=== PATIENT | female | born 1960 | race Caucasian/White ===

== ENCOUNTER 2024-01-16 11:37 | Outpatient (AMB) | payer OTHER, SELFPAY ==
--- NOTE | 2024-01-16 11:27 | MHC.PC.OV ---
Vital Signs 01/16/24 11:52 Height 5 ft 2.4 in Weight 171 lb 6 oz BMI 30.9 BP 112/60 Blood Pressure Location Lt brachial Position Sitting Respiration 12 Pulse 80 Pulse Source Pulse Oximeter Temp 98.2 F Temp Source Oral Pulse Oximetry (%) 98 Oxygen Delivery Method Room Air Intake Visit Reasons: frnaky [facility] Intake Note: New patient visit Rubber Curer Required: No Allergies No Known Allergies Allergy (Verified 01/16/24 11:48) Medication List - Last Reconciled 01/16/24 by Jeri Law PA-C cyanocobalamin (vitamin B-12) 1,000 mcg PO DAILY diltiazem HCl ER (DILT-XR) 120 mg PO DAILY famotidine (Acid Security Police Officer (famotidine)) 20 mg PO DAILY furosemide 20 mg PO BID imatinib (Gleevec) 400 mg PO DAILY lisinopril 20 mg PO DAILY lorazepam 1 mg PO Q8H PRN 28 days Tobacco use date assessed: 01/16/24 Fall risk assessment: No Falls in past year Last assessed Fall Risk: 01/16/24 Dental Screening Dental Screen Date: 01/16/24 Did you have a dental visit in the last 12 months?: Yes Did you have a dental problem in the last 6 months where you did not have access to dental care?: No Was dental information given to patient?: Patient has dentist HPI [facility] HPI Details Patient is a 64-year-old female with a significant past medical history of obesity, anxiety, hypertension , prediabetes and hyperlipidemia and CML [facility] She is transferring from [facility] and was following with [facility]arc[facility]. CV: Blood pressure today in the office is 112/60. She is on lisinopril 20 mg, furosemide 20 mg b.i.d. and diltiazem 120 mg daily. Cholesterol was managed with atorvastatin 20 mg.. She did follow with cardiology and last year had a stress test which was normal, echo unchanged from previous. Following with Cardiology and has an appointment for a coronary artery CT at the end of the month. Musculoskeletal: Still does get some swelling/discomfort on the plantar aspect of her bilateral feet. Right worse than left. Improved with the diuretic. She has EMG is scheduled for next week, leg ultrasounds at the end of the month. Endo: Last A1c was 6.2. Psych: Takes Ativan as needed for anxiety symptoms. Was on a controlled substance contract at [facility]. Mammo: Up-to-date at [facility] states that it was done earlier this year in May Pap: As above Bone density: Reports being up-to-date. Colonoscopy: Overdue [facility] Medical History (Updated 01/16/24 @ 13:31 by Jeri Law PA-C) Prediabetes Obesity, Class I, BMI 30.0-34.9 (see actual BMI) Neuropathy of both feet Lower extremity edema Left-sided chest pain HTN (hypertension) Hyperlipidemia CML (chronic myelocytic leukemia) Anxiety Surgical History (Updated 01/16/24 @ 11:36 by Lisa Shepherd CMA) H/O lumpectomy Family History (Updated 01/16/24 @ 12:03 by Lisa Shepherd CMA) Mother HTN (hypertension) Hypercholesteremia Cardiovascular disease Father Hypercholesteremia HTN (hypertension) Cardiovascular disease Social History (Updated 01/16/24 @ 11:57 by Lisa Shepherd CMA) Housing: House Patient Tobacco Use Status: Former Tobacco user Years Smoked: Teenage years e-Cigarette/Vaping Use: Never Used Second Hand Smoke Exposure: No service: No Current occupational status: employed 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 1. Little interest or pleasure in doing things: not at all 2. Feeling down, depressed, or hopeless: not at all 3. Trouble falling or staying asleep, or sleeping too much: several days 4. Feeling tired or having little energy: several days 5. Poor appetite or overeating: not at all 6. Feeling bad about yourself - or that you are a failure or have let yourself or your family down: not at all 7. Trouble concentrating on things, such as reading the newspaper or watching television: not at all 8. Moving or speaking so slowly that other people could have noticed. Or the opposite - being so fidgety or restless that you have been moving around a lot more than usual: not at all 9. Thoughts that you would be better off or of hurting yourself in some way: not at all Total score: 2 Depression Screening Interpretation: Negative Depression Screening Done: Yes 66161 - PHQ-9 Billing: Yes Source: Developed by Drs. Jhon Lozano, Aracelis Fuentes, Cristobal Fofana and colleagues, with an educational arnaldo from [employer]. Thrive Questionnaire Date Thrive assessed: 01/16/24 I am a: Patient What is your living situation today?: I have a steady place to live Within the past 12 months, did the food you bought not last and you didn't have the money to get more?: Never true Within the past 12 months, did you worry whether your food would run out before you got money to buy more?: Never true Do you have trouble paying for medicines?: No Do you have trouble getting transportation to medical appointments?: No Do you have trouble paying your heating and electricity bill?: No Do you have trouble taking care of your child, family member or friend?: No Do you have trouble with day-to-day activities such as bathing, preparing meals, shopping, managing finances, etc.?: No Are you currently unemployed and looking for a job?: No Are you interested in more education?: No Please select the resources that you would like help with: None Currently or been in a relationship where the following occur: No concerns reported THRIVE Score: 0 AUDIT C Alcohol Use Questionnaire (AUDIT-C) 1. How often do you have a drink containing alcohol?: Monthly or less 2. How many drinks containing alcohol do you have on a typical day when you are drinking?: 1 or 2 3. How often do you have six or more drinks on one occasion?: Never Total Score: 1 HEATHER-7 AMB Questionnaire HEATHER-7 Date HEATHER - 7 assessed: 01/16/24 Feeling nervous, anxious, or on edge: 1 = Several days Not being able to stop or control worryin = Several days Worrying too much about different things: 1 = Several days Trouble relaxin = Not at all Being so restless that it is hard to sit still: 0 = Not at all Becoming easily annoyed or irritable: 0 = Not at all Feeling afraid as if something awful might happen: 0 = Not at all Total HEATHER-7 score (0-4 normal; 5-9 mild; 10-14 moderate; 15-21 severe): 3 Source: Developed by Drs. Jhon Lozano, Aracelis Fuentes, Cristobal Fofana and colleagues, with an educational arnaldo from [employer]. HEATHER-7 Assessment Billing HEATHER-7 Assessment Tool: HEATHER-7 Assessment 45453 Physical exam (Primary Care) Vital Signs: Last Vital Signs Temp 98.2 F 01/16/24 11:52 Pulse 80 01/16/24 11:52 Resp 12 01/16/24 11:52 BP 112/60 01/16/24 11:52 Pulse Ox 98 01/16/24 11:52 Oxygen Delivery Method Room Air 01/16/24 11:52 BMI result Body Mass Index 30.9 Tobacco/Smoking Status: Tobacco use Status Tobacco use date assessed 01/16/24 01/16/24 12:06 Patient Tobacco Use Status Former Tobacco user 01/16/24 12:06 e-Cigarette/Vaping Use Never Used 01/16/24 12:06 PHQ-9: PHQ-9 Score PHQ-9: Total score 2 01/16/24 12:10 Depression Screening Interpretation: Negative Thrive Assessment: Date of Thrive Assessment Date Thrive assessed 01/16/24 01/16/24 12:06 Currently or been in a relationship where the following occur: No concerns reported Const Orientation/consciousness: patient oriented x3 HENMT Ears: hearing grossly normal bilaterally Neck Thyroid: Thyroid normal Lymphatic: no lymphadenopathy noted Resp Auscultation: clear to auscultation bilaterally Cardio Rate: regular rate Rhythm: regular rhythm Heart sounds: S1 normal heart sound present and S2 normal heart sound present GI Inspection: Yes normal to inspection Palpation (GI): Soft to palpation and Other GI palpation findings present (nontender, no cva tenderness) Auscultation: normoactive bowel sounds Rectal Exam - Female: deferred Skin General skin exam: no rashes or lesions noted Neuro General: patient oriented x3, gait normal and no focal motor deficits Assessment and Plan Assessment & Plan (1) CML (chronic myelocytic leukemia): Code(s): C92.10 - Chronic myeloid leukemia, BCR/ABL-positive, not having achieved remission Plan: Managed by Dr. Ryan lagos (2) Hyperlipidemia: Code(s): E78.5 - Hyperlipidemia, unspecified Qualifiers: Hyperlipidemia type: mixed hyperlipidemia Qualified Code(s): E78.2 - Mixed hyperlipidemia Plan: refilled atorvastatin lipids and lfts ordered (3) HTN (hypertension): Code(s): I10 - Essential (primary) hypertension Qualifiers: Hypertension type: primary hypertension Qualified Code(s): I10 - Essential (primary) hypertension Plan: wnl continue current plan (4) Lower extremity edema: Code(s): R60.0 - Localized edema Plan: ? related to ccb reports normal xrays seeing vascular for u/s (5) Neuropathy of both feet: Code(s): G57.93 - Unspecified mononeuropathy of bilateral lower limbs Plan: emgs scheduled (6) Prediabetes: Code(s): R73.03 - Prediabetes Plan: a1c ordered Plan ref gastro for colonoscopy Orders: Orders Complete Blood Count Auto Diff Today C92.10 - Chronic myeloid leukemia, BCR/ABL-positive, not having achieved remission, E78.5 - Hyperlipidemia, unspecified, G57.93 - Unspecified mononeuropathy of bilateral lower limbs, I10 - Essential (primary) hypertension, R60.0 - Localized edema, R73.03 - Prediabetes Comprehensive [place]. Panel Fast Today C92.10 - Chronic myeloid leukemia, BCR/ABL-positive, not having achieved remission, E78.5 - Hyperlipidemia, unspecified, G57.93 - Unspecified mononeuropathy of bilateral lower limbs, I10 - Essential (primary) hypertension, R60.0 - Localized edema, R73.03 - Prediabetes Lipid Panel Today C92.10 - Chronic myeloid leukemia, BCR/ABL-positive, not having achieved remission, E78.5 - Hyperlipidemia, unspecified, G57.93 - Unspecified mononeuropathy of bilateral lower limbs, I10 - Essential (primary) hypertension, R60.0 - Localized edema, R73.03 - Prediabetes Lyme IgG/IgM w/reflex to WB Today C92.10 - Chronic myeloid leukemia, BCR/ABL-positive, not having achieved remission, E78.5 - Hyperlipidemia, unspecified, G57.93 - Unspecified mononeuropathy of bilateral lower limbs, I10 - Essential (primary) hypertension, R60.0 - Localized edema, R73.03 - Prediabetes TSH reflex Free T4 Today C92.10 - Chronic myeloid leukemia, BCR/ABL-positive, not having achieved remission, E78.5 - Hyperlipidemia, unspecified, G57.93 - Unspecified mononeuropathy of bilateral lower limbs, I10 - Essential (primary) hypertension, R60.0 - Localized edema, R73.03 - Prediabetes UA CC w/rflx Micro + Cult Today C92.10 - Chronic myeloid leukemia, BCR/ABL-positive, not having achieved remission, E78.5 - Hyperlipidemia, unspecified, G57.93 - Unspecified mononeuropathy of bilateral lower limbs, I10 - Essential (primary) hypertension, R60.0 - Localized edema, R73.03 - Prediabetes Microalbumin, Random (w Creat) Today R73.03 - Prediabetes Hemoglobin A1c Today R73.03 - Prediabetes Referrals Gastroenterology Referral Z12.11 - Encounter for screening for malignant neoplasm of colon Medications: New atorvastatin 20 mg PO BEDTIME 90 tabs 1RF Coding Level of Care Code Est Pt Level 4 (64706) Complex EM visit Add On G2211 Diagnoses CML (chronic myelocytic leukemia) C92.10 Mixed hyperlipidemia E78.2 Hyperlipidemia type: mixed hyperlipidemia Primary hypertension I10 Hypertension type: primary hypertension Lower extremity edema R60.0 Neuropathy of both feet G57.93 Prediabetes R73.03 Additional Codes HEATHER-7 Assessment Billing - HEATHER-7 Assessment Tool: HEATHER-7 Assessment 34310 ([id number])
[2024-01-16 11:52] VITALS: BP 112/60; PULSE 80; RESP 12; TEMP 36.8; O2SAT 98; BMI 30.9
== END 2024-01-16 12:57 | disposition home or self-care (01) ==
PROVIDERS: PCP Physician Assistant; Visit Provider Physician Assistant
DX: I10 Essential (primary) hypertension (principal); C92.10 Chronic myeloid leukemia, BCR/ABL-positive, not having achieved remission; E78.2 Mixed hyperlipidemia; R60.0 Localized edema; G57.93 Unspecified mononeuropathy of bilateral lower limbs; R73.03 Prediabetes
CPT/HCPCS: 99214

== ENCOUNTER 2024-01-24 08:30 | Outpatient (REF) | payer OTHER, SELFPAY ==
[2024-01-24 10:05] LABS: MANUAL DIFF FLAG NO
[2024-01-24 10:09] LABS: Appearance Urine Clear; Color Urine Yellow; Glucose Urine UA Negative (Negative); Leukocyte Esterase Urine Negative (Negative); Nitrite Urine Negative (Negative); Urine Blood Negative (Negative); Urine Ketones Negative (Negative); Urine Protein Negative (Neg-Trace)
[2024-01-24 10:39] LABS: Creatinine Urine 63.08 mg/dL; Microalbumin Urine < 5.0 mg/L
[2024-01-24 10:39] LABS: Estimated Average Glucose 123 mg/dL; Hemoglobin A1c % 5.9 % (<6.0)
[2024-01-24 10:40] LABS: Alanine Aminotransferase 22 U/L (0-31); Alkaline Phosphatase 114 U/L (39-117); Anion Gap 13 (12-20); Aspartate Amino Transferase 21 U/L (5-31); Bilirubin Total 0.5 mg/dL (0.0-1.0); Blood Urea Nitrogen 12 mg/dL (9-16); Calcium 9.3 mg/dL (8.4-10.2); Carbon Dioxide 26 mmol/L (22-29); Chloride 106 mmol/L (96-108); Cholesterol 166 mg/dL (<200); Estimated Glomerular Filt Rate > 60; Glucose Fasting 126 mg/dL (60-99); HDL Cholesterol 48 mg/dL (>40); LDL Cholesterol Calculated 95 mg/dL (<100); Sodium 141 mmol/L (135-145); Total Protein 6.8 g/dL (6.5-8.0); Triglycerides 119 mg/dL (<150)
[2024-01-24 10:44] LABS: Basophils Absolute Auto 0.1 X10*3/uL (0.0-0.2); Basophils Percent Auto 0.7 % (0-2); Eosinophils Absolute Auto 0.1 X10*3/uL (0.0-0.4); Hematocrit 36.1 % (37.0-47.0); Hemoglobin 12.6 g/dl (12.0-16.0); Imm Gran Abs Auto 0.01 X10*3/uL (0.00-0.03); Imm Gran Pct Auto 0.1 % (0.0-0.4); Lymphocytes Percent Auto 28.3 % (20-40); Mean Corpuscular HGB Conc 34.9 g/dl (31.0-35.0); Mean Corpuscular Hemoglobin 31.5 pg (27.0-33.0); Mean Corpuscular Volume 90.3 fL (80.0-98.0); Mean Platelet Volume 9.3 fL (9.4-12.3); Monocytes Absolute Auto 0.5 X10*3/uL (0.1-1.2); Monocytes Percent Auto 6.7 % (2-11); Neutrophils Absolute Auto 4.4 x10*3/uL (2.0-8.3); Neutrophils Percent Auto 62.2 % (45-73); Platelet Count 332 X10*3/uL (160-400); Red Cell Distribution Width 13.2 % (11.0-16.0); White Blood Count 7.1 X10*3/uL (4.8-10.8)
[2024-01-24 10:58] LABS: TSH reflex Free T4 0.81 uIU/mL (0.32-4.0)
[2024-01-25 21:14] LABS: Lyme Abs Screen <0.90 index
== END 2024-01-24 08:31 | disposition home or self-care (01) ==
LOC: HO.HMGCLDS 08:30
PROVIDERS: PCP Physician Assistant; Visit Provider Physician Assistant
DX: R73.03 Prediabetes (principal); G57.93 Unspecified mononeuropathy of bilateral lower limbs; I10 Essential (primary) hypertension; E78.5 Hyperlipidemia, unspecified; R60.0 Localized edema; C92.10 Chronic myeloid leukemia, BCR/ABL-positive, not having achieved remission
CPT/HCPCS: 36415; 80053; 80061; 81003; 82043; 82570; 83036; 84443; 85025; 86617; 86618

== ENCOUNTER 2024-03-06 15:13 | Outpatient (AMB) | payer OTHER, SELFPAY ==
--- NOTE | 2024-03-06 15:33 | MHC.PC.OV ---
Vital Signs 03/06/24 15:34 Height 5 ft 2.4 in Weight 176 lb BMI 31.8 BP 124/78 Blood Pressure Location Rt brachial Position Sitting Pulse 73 Pulse Source Pulse Oximeter Pulse Oximetry (%) 99 Oxygen Delivery Method Room Air Intake Visit Reasons: f/u csc and imaging with [facility] Intake Note: Follow up Transportation Security Screener Required: No Allergies No Known Allergies Allergy (Verified 03/06/24 15:33) Tobacco use date assessed: 01/16/24 Dental Screening Dental Screen Date: 01/16/24 HPI HPI Comments History of Present Illness Details Patient is a 64-year-old female with a past medical history of obesity, anxiety, hypertension, prediabetes and hyperlipidemia and CML presenting today for followup. CV: Blood pressure today in the office is 124/78. She is on lisinopril 20 mg, furosemide 20 mg b.i.d. and diltiazem 120 mg daily. Cholesterol was managed with atorvastatin 20 mg. She did follow with cardiology and last year had a stress test which was normal, echo unchanged from previous. Following with Cardiology. Dr. Rahman, and had a coronary artery calcium score on 02/07/24 which showed minimal stenosis in the left distal left main, mid LAD and distal RCA and mild diffuse mixed atherosclerotic plaque in the descending thoracic aorta. She had a lower extremity EMG in January at [facility], but the result is not on her portal. She was told it was normal. Her legs feel heavy frequently. Taking the diuretic helps. She mentions today that she thinks this may have started after she began taking diltiazem for her blood pressure. Still does get some swelling/discomfort on the plantar aspect of her bilateral feet. Right worse than left. Improved with the diuretic. She saw vascular surgery, and evaluation demonstrated no significant reflux. Endo: Last A1c was 5.9% 02/01/2024. Psych: Takes Ativan as needed for anxiety symptoms. ROS: Constitutional: No unexplained weight loss, fever, chills Respiratory: No shortness of breath Cardiovascular: No chest pain Neurologic: No headache, dizziness, syncope Skin: No rash Physical exam: Constitutional: Alert, in no distress. Head: Normocephalic. Respiratory: Clear to auscultation. Cardiovascular: S1 S2 regular. No murmurs Neurologic: No focal neurological deficits. . Extremities: Warm and well perfused. No clubbing, cyanosis. There is trace bilateral lower extremity edema Psychiatric: Normal mood and affect [facility] Medical History (Updated 01/16/24 @ 13:31 by Jeri Law PA-C) Prediabetes Obesity, Class I, BMI 30.0-34.9 (see actual BMI) Neuropathy of both feet Lower extremity edema Left-sided chest pain HTN (hypertension) Hyperlipidemia CML (chronic myelocytic leukemia) Anxiety Surgical History (Updated 01/16/24 @ 11:36 by Lisa Shepherd CMA) H/O lumpectomy Family History (Updated 01/16/24 @ 12:03 by Lisa Shepherd CMA) Mother HTN (hypertension) Hypercholesteremia Cardiovascular disease Father Hypercholesteremia HTN (hypertension) Cardiovascular disease Social History (Updated 01/16/24 @ 11:57 by Lisa Shepherd CMA) Housing: House Patient Tobacco Use Status: Former Tobacco user Years Smoked: Teenage years e-Cigarette/Vaping Use: Never Used Second Hand Smoke Exposure: No service: No Current occupational status: employed 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 1. Little interest or pleasure in doing things: not at all 2. Feeling down, depressed, or hopeless: not at all 3. Trouble falling or staying asleep, or sleeping too much: not at all 4. Feeling tired or having little energy: not at all 5. Poor appetite or overeating: not at all 6. Feeling bad about yourself - or that you are a failure or have let yourself or your family down: not at all 7. Trouble concentrating on things, such as reading the newspaper or watching television: not at all 8. Moving or speaking so slowly that other people could have noticed. Or the opposite - being so fidgety or restless that you have been moving around a lot more than usual: not at all Source: Developed by Drs. Jhon Lozano, Aracelis Fuentes, Cristobal Fofana and colleagues, with an educational arnaldo from [employer]. Thrive Questionnaire Date Thrive assessed: 02/28/24 I am a: Patient What is your living situation today?: I have a steady place to live Within the past 12 months, did the food you bought not last and you didn't have the money to get more?: Never true THRIVE Score: 0 HEATHER-7 AMB Questionnaire HEATHER-7 Date HEATHER - 7 assessed: 01/16/24 Source: Developed by Drs. Jhon Lozano, Aracelis Fuentes, Cristobal Fofana and colleagues, with an educational arnaldo from [employer]. Physical exam (Primary Care) Vital Signs: Last Vital Signs Pulse 73 03/06/24 15:34 BP 124/78 03/06/24 15:34 Pulse Ox 99 03/06/24 15:34 Oxygen Delivery Method Room Air 03/06/24 15:34 BMI result Body Mass Index 31.8 Tobacco/Smoking Status: Tobacco use Status Tobacco use date assessed 01/16/24 03/06/24 15:38 Patient Tobacco Use Status Former Tobacco user 03/06/24 15:38 e-Cigarette/Vaping Use Never Used 03/06/24 15:38 Thrive Assessment: Date of Thrive Assessment Date Thrive assessed 02/28/24 03/06/24 15:38 Coding Level of Care Code Est Pt Level 4 (98639) Complex EM visit Add On G2211 Diagnoses CML (chronic myelocytic leukemia) C92.10 Lower extremity edema R60.0 Prediabetes R73.03 Primary hypertension I10 Hypertension type: primary hypertension Mixed hyperlipidemia E78.2 Hyperlipidemia type: mixed hyperlipidemia Neuropathy of both feet G57.93 Assessment & Plan Assessment & Plan (1) CML (chronic myelocytic leukemia): Code(s): C92.10 - Chronic myeloid leukemia, BCR/ABL-positive, not having achieved remission Category: Medical (2) Lower extremity edema: Code(s): R60.0 - Localized edema Category: Medical (3) Prediabetes: Code(s): R73.03 - Prediabetes Category: Medical (4) HTN (hypertension): Code(s): I10 - Essential (primary) hypertension Category: Medical Qualifiers: Hypertension type: primary hypertension Qualified Code(s): I10 - Essential (primary) hypertension (5) Hyperlipidemia: Code(s): E78.5 - Hyperlipidemia, unspecified Category: Medical Qualifiers: Hyperlipidemia type: mixed hyperlipidemia Qualified Code(s): E78.2 - Mixed hyperlipidemia (6) Neuropathy of both feet: Code(s): G57.93 - Unspecified mononeuropathy of bilateral lower limbs Category: Medical Plan The patient will try discontinuing diltiazem while increasing lisinopril to 30 mg daily. Given written instructions that if blood pressure is greater than 140/90 she should increase to 40 mg of lisinopril by taking 2 of her 20 mg tablets. When she returns in 2 weeks for follow up we will check renal function and electrolytes. Side effects of the medication reviewed. If her lower extremity symptoms do not resolve or significantly improve after making this change we discussed ordering imaging of her lower back to see if this is possibly related to nerve compression. She agrees. We discussed increasing her dose of atorvastatin to target LDL less than 70 given minimal/mild atherosclerosis on her coronary artery CT scan, but we will defer this change until her next appointment given the changes we are making to her blood pressure regimen today. She will continue her other medications including her diuretic. EMG result requested from [facility]. Follow up in 2 weeks for re-evaluation. Medications: New lisinopril 30 mg PO DAILY 14 days 14 tabs 0RF Discontinued lisinopril Discontinued Reason: Doctor's Order 20 mg PO DAILY 90 tabs 3RF diltiazem HCl ER (DILT-XR) Discontinued Reason: Doctor's Order 120 mg PO DAILY 90 caps 3RF Patient Instructions: Stop diltiazem and increase lisinopril to 30 mg once daily. If your blood pressure is >140/90 then stop the 30 mg tab and take 2 of the 20 mg Lisinopril tablets daily. Follow up in 2 weeks for blood pressure and blood test that day to check your kidney function and potassium on the new dose of Lisinopril.
[2024-03-06 15:34] VITALS: BP 124/78; PULSE 73; O2SAT 99; BMI 31.8
== END 2024-03-06 16:04 | disposition home or self-care (01) ==
PROVIDERS: PCP Physician Assistant; Visit Provider Physician Assistant Medical
DX: C92.10 Chronic myeloid leukemia, BCR/ABL-positive, not having achieved remission (principal); R60.0 Localized edema; R73.03 Prediabetes; I10 Essential (primary) hypertension; E78.2 Mixed hyperlipidemia; G57.93 Unspecified mononeuropathy of bilateral lower limbs

== ENCOUNTER → 2024-03-06 15:13 | Outpatient (BNVA) | payer OTHER, SELFPAY | PROVIDERS: PCP Physician Assistant; Visit Provider Physician Assistant Medical ==

== ENCOUNTER 2024-03-20 11:36 | Outpatient (AMB) | payer OTHER, SELFPAY ==
--- NOTE | 2024-03-20 11:38 | MHC.PC.OV ---
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 CV: We stopped diltiazem and increase lisinopril from 20-30 mg at her last visit. She also takes furosemide 20 mg b.i.d. Cholesterol is managed with atorvastatin 20 mg. She did follow with cardiology and last year had a stress test which was normal, echo unchanged from previous. Following with Cardiology. Dr. Rahman, and had a coronary artery calcium score on 02/07/24 which showed minimal stenosis in the left distal left main, mid LAD and distal RCA and mild diffuse mixed atherosclerotic plaque in the descending thoracic aorta. Home blood pressure readings: 03/07 135/68 125/69 03/12 131/69 03/14 136/62 03/16 133/65 131/77 03/19/24 126/65 an 118/62 She had a lower extremity EMG in January at [facility] which was normal. Her legs feel heavy frequently. Taking the diuretic helps. We discontinued diltiazem because she thought it started or worsened after she began this medication. Still does get some swelling/discomfort on the plantar aspect of her bilateral feet. Right worse than left. Improved with the diuretic. Lower extremity edema is also a potential side effect of Gleevec. She saw vascular surgery, and evaluation demonstrated no significant reflux. Endo: Last A1c was 5.9% 02/01/2024. Psych: Takes Ativan as needed for anxiety symptoms. ROS: Constitutional: No unexplained weight loss, fever, chills Respiratory: No shortness of breath Cardiovascular: No chest pain Neurologic: No headache, dizziness, syncope Skin: No rash Physical exam: Constitutional: Alert, in no distress. Head: Normocephalic. Respiratory: Clear to auscultation. Cardiovascular: S1 S2 regular. No murmurs Neurologic: No focal neurological deficits. . Extremities: Warm and well perfused. No clubbing, cyanosis. There is trace bilateral lower extremity edema Psychiatric: Normal mood and affect [facility] Medical History Prediabetes Obesity, Class I, BMI 30.0-34.9 (see actual BMI) Neuropathy of both feet Lower extremity edema Left-sided chest pain HTN (hypertension) Hyperlipidemia CML (chronic myelocytic leukemia) Anxiety Surgical History H/O lumpectomy Family History Mother HTN (hypertension) Hypercholesteremia Cardiovascular disease Father Hypercholesteremia HTN (hypertension) Cardiovascular disease Social History Housing: House Patient Tobacco Use Status: Former Tobacco user Years Smoked: Teenage years e-Cigarette/Vaping Use: Never Used Second Hand Smoke Exposure: No service: No Current occupational status: employed 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 95982 - PHQ-9 Billing: Patient declined-do not bill Source: Developed by Drs. Jhon Lozano, Aracelis Fuentes, Cristobal Fofana and colleagues, with an educational arnaldo from [employer]. Thrive Questionnaire Date Thrive assessed: 03/20/24 I am a: Patient What is your living situation today?: I have a steady place to live Within the past 12 months, did the food you bought not last and you didn't have the money to get more?: Never true Within the past 12 months, did you worry whether your food would run out before you got money to buy more?: Never true Do you have trouble paying for medicines?: No Do you have trouble getting transportation to medical appointments?: No Do you have trouble paying your heating and electricity bill?: No Do you have trouble taking care of your child, family member or friend?: No Do you have trouble with day-to-day activities such as bathing, preparing meals, shopping, managing finances, etc.?: No Are you currently unemployed and looking for a job?: No Are you interested in more education?: No THRIVE Score: 0 HEATHER-7 AMB Questionnaire HEATHER-7 Date HEATHER - 7 assessed: 01/16/24 Source: Developed by Drs. Jhon Lozano, Aracelis Fuentes, Cristobal Fofana and colleagues, with an educational arnaldo from [employer]. Physical exam (Primary Care) Vital Signs: Last Vital Signs Pulse 65 03/20/24 11:42 Resp 13 03/20/24 11:42 BP 140/65 H 03/20/24 11:42 Pulse Ox 100 03/20/24 11:42 Oxygen Delivery Method Room Air 03/20/24 11:42 BMI result Body Mass Index 31.4 Tobacco/Smoking Status: Tobacco use Status Tobacco use date assessed 01/16/24 03/20/24 11:41 Patient Tobacco Use Status Former Tobacco user 03/20/24 11:41 e-Cigarette/Vaping Use Never Used 03/20/24 11:41 Thrive Assessment: Date of Thrive Assessment Date Thrive assessed 03/20/24 03/20/24 11:41 Coding Level of Care Code Est Pt Level 4 (70122) Complex EM visit Add On G2211 Diagnoses CML (chronic myelocytic leukemia) C92.10 Lower extremity edema R60.0 Prediabetes R73.03 Primary hypertension I10 Hypertension type: primary hypertension Mixed hyperlipidemia E78.2 Hyperlipidemia type: mixed hyperlipidemia Neuropathy of both feet G57.93 Assessment & Plan Assessment & Plan (1) CML (chronic myelocytic leukemia): Code(s): C92.10 - Chronic myeloid leukemia, BCR/ABL-positive, not having achieved remission Category: Medical (2) Lower extremity edema: Code(s): R60.0 - Localized edema Category: Medical (3) Prediabetes: Code(s): R73.03 - Prediabetes Category: Medical (4) HTN (hypertension): Code(s): I10 - Essential (primary) hypertension Category: Medical Qualifiers: Hypertension type: primary hypertension Qualified Code(s): I10 - Essential (primary) hypertension (5) Hyperlipidemia: Code(s): E78.5 - Hyperlipidemia, unspecified Category: Medical Qualifiers: Hyperlipidemia type: mixed hyperlipidemia Qualified Code(s): E78.2 - Mixed hyperlipidemia (6) Neuropathy of both feet: Code(s): G57.93 - Unspecified mononeuropathy of bilateral lower limbs Category: Medical Plan She will remain off diltiazem. She will send me blood pressure readings over the patient portal after another 2 weeks. I will increase her dose of lisinopril to 40 mg if her blood pressure readings are not at goal. Check BMP today. We discussed increasing her dose of atorvastatin to target LDL less than 70 given minimal/mild atherosclerosis on her coronary artery CT scan. She is agreeable to this. Side effects reviewed with the patient. She will contact the office if she has any difficulty with this. She will continue her other medications including her diuretic. Continue Ativan 1 mg every 8 hours as needed for anxiety. Reviewed it is a controlled substance that is addictive. She is not to stop it abruptly. Do not drink alcohol with this medication. Do not drive or operate heavy machinery. Follow up in 6 months for medication review. Orders: Orders Basic Metabolic Panel Today I10 - Essential (primary) hypertension Medications: New atorvastatin 40 mg PO BEDTIME 90 tabs 0RF Changed From lisinopril 30 mg PO DAILY 14 days 14 tabs 0RF To lisinopril 30 mg PO DAILY 30 tabs 0RF 30 days Discontinued atorvastatin Discontinued Reason: Doctor's Order 20 mg PO BEDTIME 90 tabs 1RF
[2024-03-20 11:42] VITALS: BP 140/65; PULSE 65; RESP 13; O2SAT 100; BMI 31.4
== END 2024-03-20 12:03 | disposition home or self-care (01) ==
LOC: HO.HMCFM 11:36
PROVIDERS: PCP Physician Assistant Medical; Visit Provider Physician Assistant Medical
DX: C92.10 Chronic myeloid leukemia, BCR/ABL-positive, not having achieved remission (principal); R60.0 Localized edema; R73.03 Prediabetes; I10 Essential (primary) hypertension; E78.2 Mixed hyperlipidemia; G57.93 Unspecified mononeuropathy of bilateral lower limbs

== ENCOUNTER → 2024-03-20 11:36 | Outpatient (BNVA) | payer OTHER, SELFPAY | PROVIDERS: PCP Physician Assistant; Visit Provider Physician Assistant Medical ==

== ENCOUNTER 2024-03-27 15:21 | Outpatient (REF) | payer OTHER, SELFPAY ==
[2024-03-27 18:19] LABS: Anion Gap 13 (12-20); Blood Urea Nitrogen 14 mg/dL (9-16); Calcium 9.1 mg/dL (8.4-10.2); Carbon Dioxide 29 mmol/L (22-29); Chloride 103 mmol/L (96-108); Estimated Glomerular Filt Rate 54; Glucose Random 117 mg/dL (60-115); Potassium 3.5 mmol/L (3.3-5.1); Sodium 141 mmol/L (135-145)
== END 2024-03-27 15:22 | disposition home or self-care (01) ==
LOC: HO.HMGCLDS 15:21
PROVIDERS: PCP Physician Assistant Medical; Visit Provider Physician Assistant Medical
DX: I10 Essential (primary) hypertension (principal)
CPT/HCPCS: 36415; 80048

== ENCOUNTER 2024-05-30 08:09 | Outpatient (AMB) | payer OTHER, SELFPAY ==
[2024-05-30 08:12] VITALS: BP 130/66; PULSE 78; O2SAT 98; BMI 32.1
--- NOTE | 2024-05-30 08:12 | MHC.OFFVIS ---
Vital Signs 05/30/24 08:12 Height 5 ft 2 in Weight 175 lb 7.807 oz BMI 32.1 BP 130/66 Blood Pressure Location Rt brachial Position Sitting Pulse 78 Pulse Source Pulse Oximeter Pulse Oximetry (%) 98 Oxygen Delivery Method Room Air Intake Visit Reasons: Colonoscopy Screening Intake Note: NEW PATIENT Reason; Screening Prior hx of colo/egd? [place]o ' via [facility]? Most recent on file was w/ Dr. Cedillo Concerns/Questions? Worsening GERD sx. Pt still taking famotidine but feels it is not as well controlled. Allergies No Known Allergies Allergy (Verified 05/30/24 08:13) HPI HPI Colonoscopy Screening: Details: 64 year old? female with past medical history of hypertension, hyperlipidemia, CML is here today for pre colonoscopy screening.? Patient was sent to us by her PCP.? Last colonoscopy in 2004.? Patient reports acid reflux. Taking Pepcid, however states that it is not helping. Reports worsening symptoms at night time. ? Denies any personal or family history of gastrointestinal disease, colon polyps, or CRC.? Denies history of difficulty with sedation or anesthesia in the past.? Negative for history of sleep apnea.? Denies any history of cardiac, renal, pulmonary, or hepatic disease.?? No history of infectious? diseases like hepatitis A, B, C, HIV or tuberculosis.? Patient is not on any anticoagulation [facility] Medical History (Updated 05/30/24 @ 10:47 by Daphne Brandon, [facility]) GERD (gastroesophageal reflux disease) Prediabetes Obesity, Class I, BMI 30.0-34.9 (see actual BMI) Neuropathy of both feet Lower extremity edema Left-sided chest pain HTN (hypertension) Hyperlipidemia CML (chronic myelocytic leukemia) Anxiety Surgical History H/O lumpectomy Family History Mother HTN (hypertension) Hypercholesteremia Cardiovascular disease Father Hypercholesteremia HTN (hypertension) Cardiovascular disease Social History Housing: House Patient Tobacco Use Status: Former Tobacco user Years Smoked: Teenage years e-Cigarette/Vaping Use: Never Used Second Hand Smoke Exposure: No service: No Current occupational status: employed 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 Current occupational exposures/hazards: No Cognitive needs: No Hearing needs: No Vision needs: Yes (reading glasses) Review of Systems Const Denies weight gain and Denies weight loss ENT Reports no additional complaints, Denies dysphagia and Denies odynophagia Card Reports no additional complaints Resp Reports no additional complaints GI Denies abdominal pain, Denies belching, Denies melena, Denies bloating, Denies change in bowel habits, Denies dysphagia, Denies excessive flatus, Denies dyspepsia, Denies heartburn, Denies diarrhea, Denies loose stools, Denies nausea, Denies odynophagia and Denies vomiting Musc Reports no additional complaints Neuro Reports no additional complaints Psych Reports no additional complaints Endo Reports no additional complaints Physical Exam Vital Signs: Last Vital Signs Pulse 78 05/30/24 08:12 BP 130/66 05/30/24 08:12 Pulse Ox 98 05/30/24 08:12 Oxygen Delivery Method Room Air 05/30/24 08:12 BMI result Body Mass Index 32.1 Const General: healthy appearing, no acute distress and well developed Nutritional Appearance: well nourished Orientation/consciousness: patient oriented x3 Resp Effort & Inspection: normal respiratory effort, able to speak in complete sentences, no tracheal deviation and symmetric chest movement Auscultation: clear to auscultation bilaterally Cardio Rate: regular rate GI Inspection: Yes normal to inspection and No distended Palpation (GI): Soft to palpation, not firm, nontender and No hepatosplenomegaly present Auscultation: normal bowel sounds General: Yes no CVA tenderness Back/Spine/Pelvis Back: no CVA tenderness Skin General skin exam: elasticity normal, turgor normal and dry skin Neuro General: patient oriented x3 Psych Appearance: grossly normal Mental Status: mental status grossly normal Assessment & Plan Assessment & Plan (1) Screen for colon cancer: Code(s): Z12.11 - Encounter for screening for malignant neoplasm of colon (2) GERD (gastroesophageal reflux disease): Code(s): K21.9 - Gastro-esophageal reflux disease without esophagitis Category: Medical Qualifiers: Esophagitis presence: esophagitis presence not specified Qualified Code(s): K21.9 - Gastro-esophageal reflux disease without esophagitis Plan Patient denies any cardiac or respiratory symptoms.? Patient reports acid reflux. Worse at night time. Patient is taking famotidine, however reports that it is not helping as much. Patient denies dyspepsia, dysphagia or odynophagia. Will send patient for upper endoscopy to rule out gastritis, esophagitis, gastric or peptic ulcer, H pylori. Denies any issues with anesthesia in the past.? Denies any history of sleep apnea.? No history infectious diseases in the past or present.? Not on any anticoagulation therapy.? No family or personal history of colon cancer.? Patient denies melena, hematochezia, unintentional weight loss or ribbon like stools.? Discussed at length the pre-procedure,? prep, diet & medications as well as what to expect prior, during and after the procedure.?? Stressed the importance of good bowel prep.? Recommended the use of Vaseline or Calmoseptine OTC & baby wipes with bowel movements to promote comfort.? ?Patient verbalizes understanding and agrees to plan of care.? She was given the opportunity to ask questions and all questions answered.? We will see her after the procedure.? Medications: New pantoprazole 20 mg PO DAILY 30 tabs 3RF bisacodyl (Dulcolax (bisacodyl)) take 4 tabs at noon the day before your colonoscopy 20 mg (4 x 5 mg) PO ONCE 1 day 4 tabs 0RF Z12.11 - Encounter for screening for malignant neoplasm of colon polyethylene glycol 3350 (Miralax) As directed by gastroenterology department at [facility] 238 grams PO ONCE 238 grams 0RF Z12.11 - Encounter for screening for malignant neoplasm of colon Coding Level of Care Code New Pt Level 3 (76586) Diagnoses Screen for colon cancer Z12.11 Gastroesophageal reflux disease, unspecified whether esophagitis present K21.9 Esophagitis presence: esophagitis presence not specified Time Spent (min) 40 Comment 30 minutes spent with patient and additional 10 minutes spent reviewing her records
== END 2024-05-30 11:57 | disposition home or self-care (01) ==
PROVIDERS: PCP Physician Assistant; Visit Provider Nurse Practitioner Family
DX: K21.9 Gastro-esophageal reflux disease without esophagitis (principal); Z01.818 Encounter for other preprocedural examination; Z12.11 Encounter for screening for malignant neoplasm of colon
CPT/HCPCS: 99203

== ENCOUNTER → 2024-05-30 08:09 | Outpatient (BNVA) | payer OTHER, SELFPAY | PROVIDERS: PCP Physician Assistant; Visit Provider Nurse Practitioner Family ==

== ENCOUNTER 2024-08-15 06:54 | Day surgery (SDC) | payer OTHER, SELFPAY ==
--- NOTE | 2024-08-14 10:55 | HO.ANESPROP2 ---
Documented by User: Alecia Bai NP 08/14/24 10:58 HPI - Anesthesia Eval Consult details Narrative: 64yo F for Upper Endoscopy and Colonoscopy Per PCP note: 2022 stress test which was normal, echo unchanged from previous. Following with Cardiology. Dr. Rahman, and had a coronary artery calcium score on 02/07/24 which showed minimal stenosis in the left distal left main, mid LAD and distal RCA and mild diffuse mixed atherosclerotic plaque in the descending thoracic aorta. Hx CML PMFSH Active Problems Active Problems: All Active Problems GERD (gastroesophageal reflux disease) (Acute) CML (chronic myelocytic leukemia) (Acute) Lower extremity edema (Acute) Hyperlipidemia (Acute) HTN (hypertension) (Acute) Neuropathy of both feet (Acute) Prediabetes (Acute) Past Medical History Medical History GERD (gastroesophageal reflux disease) Prediabetes Obesity, Class I, BMI 30.0-34.9 (see actual BMI) Neuropathy of both feet Lower extremity edema Left-sided chest pain HTN (hypertension) Hyperlipidemia CML (chronic myelocytic leukemia) Anxiety Family History Family History Mother HTN (hypertension) Hypercholesteremia Cardiovascular disease Father Hypercholesteremia HTN (hypertension) Cardiovascular disease Surgical History Surgical History H/O lumpectomy Social History Social History Housing: House Patient Tobacco Use Status: Former Tobacco user Years Smoked: Teenage years e-Cigarette/Vaping Use: Never Used Second Hand Smoke Exposure: No Advance Directives: No Advance Directives Information Provided: Yes service: No Current occupational status: employed 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 Current occupational exposures/hazards: No Cognitive needs: No Hearing needs: No Vision needs: Yes (reading glasses) Meds Allergies Allergy/AdvReac Type Severity Reaction Status Date / Time No Known Allergies Allergy Verified 05/30/24 08:13 Home Medications ?Medication ?Instructions ?Recorded ?Confirmed ?Last Taken ?Type cyanocobalamin (vitamin B-12) 1,000 mcg PO DAILY 01/16/24 01/16/24 Unknown History 1,000 mcg capsule famotidine 20 mg tablet (Acid 20 mg PO DAILY 01/16/24 01/16/24 Unknown History Nuclear Criticality Safety Engineer (famotidine)) imatinib 400 mg tablet (Gleevec) 400 mg PO DAILY 01/16/24 01/16/24 Unknown History Exam Pertinent Lab Results Pertinent Lab Results: Laboratory Tests 01/24/24 03/27/24 08:40 15:25 WBC 7.1 Hgb 12.6 Hct 36.1 L Plt Count 332 Sodium 141 Potassium 3.5 Chloride 103 Carbon Dioxide 29 BUN 14 Creatinine 1.02 Assessment and Plan Assessment Anesthesia Assessment: Chart Reviewed Documented by User: Nelly Katz MD 08/15/24 08:08 PMF Active Problems Active Problems: All Active Problems GERD (gastroesophageal reflux disease) (Acute) CML (chronic myelocytic leukemia) (Acute) Lower extremity edema (Acute) Hyperlipidemia (Acute) HTN (hypertension) (Acute) Neuropathy of both feet (Acute) Prediabetes (Acute) Denies LESLIE Past Medical History Medical History GERD (gastroesophageal reflux disease) Prediabetes Obesity, Class I, BMI 30.0-34.9 (see actual BMI) Neuropathy of both feet Lower extremity edema Left-sided chest pain HTN (hypertension) Hyperlipidemia CML (chronic myelocytic leukemia) Anxiety Family History Family History Mother HTN (hypertension) Hypercholesteremia Cardiovascular disease Father Hypercholesteremia HTN (hypertension) Cardiovascular disease Family history of problems with anesthesia: No Surgical History Surgical History H/O lumpectomy History of Problems with Anesthesia: No Social History Social History Housing: House Patient Tobacco Use Status: Former Tobacco user Years Smoked: Teenage years e-Cigarette/Vaping Use: Never Used Second Hand Smoke Exposure: No Advance Directives: No Advance Directives Information Provided: Yes service: No Current occupational status: employed 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 Current occupational exposures/hazards: No Cognitive needs: No Hearing needs: No Vision needs: Yes (reading glasses) Meds Allergies Allergy/AdvReac Type Severity Reaction Status Date / Time No Known Allergies Allergy Verified 05/30/24 08:13 Home Medications ?Medication ?Instructions ?Recorded ?Confirmed ?Last Taken ?Type cyanocobalamin (vitamin B-12) 1,000 mcg PO DAILY 01/16/24 01/16/24 Unknown History 1,000 mcg capsule famotidine 20 mg tablet (Acid 20 mg PO DAILY 01/16/24 01/16/24 Unknown History Nuclear Criticality Safety Engineer (famotidine)) imatinib 400 mg tablet (Gleevec) 400 mg PO DAILY 01/16/24 01/16/24 Unknown History Exam Height,Weight and Vital Signs: Height 5 ft 2 in Weight 79.199 kg Vital Signs Temp Pulse Resp BP Pulse Ox O2 Del Method 08/15/24 08:00 97.0 F 67 16 148/61 H 99 Room Air Airway Mallampati Class: III (Small mouth opening) TM Dist: >3cm Neck ROM: Full Partial: Upper Loose/Missing/Broken Teeth: Yes (Partial uppers. Missing some teeth bottom. Denies loose or broken teeth) Heart: RRR Lungs: CTAB Assessment and Plan Assessment Anesthesia Assessment: Anesthesia Plan Discussed and Chart Reviewed Final Anesthetic Review Family History of Problems with Anesthesia: No History of Problems with Anesthesia: No NPO: Yes ASA Class: III Final Preanesthetic Review: No Changes in Pt Med Stat, Meds/Allgs Chart Reviewed, Consent Obtained/Reviewed and Anes Risks/Benef Reviewed Patient Risk: Intermediate Procedure Risk: Low Assessment/Block/Sedation in SS: Assess/Block/Sedation-SS Anesthetic Plan Anesthetic Plan: TIVA Disposition: Standard PACU
[2024-08-15 07:41] VITALS: BMI 31.9
--- NOTE | 2024-08-15 07:47 | MHC.SHP ---
Pre-Procedural Eval Section A - 24 Hr Update-Section A only Date of Service: 08/15/24 The patient is an INPATIENT: No The patient has been examined within 24 hours of the surgical procedure. The History & Physical has been completed within 30 days and I have reviewed it.: No Section B - Complete if H&P > 30 days Chief Complaint: Colon cancer screening, GERD Relevant Family History (Specify if Yes): No Relevant Social History: Tobacco Use (Former smoker) Present Medications: see Short Stay Collaborative assessment Medical History: Significant History (GERD (gastroesophageal reflux disease) Prediabetes Obesity, Class I, BMI 30.0-34.9 (see actual BMI) Neuropathy of both feet Lower extremity edema Left-sided chest pain HTN (hypertension) Hyperlipidemia CML (chronic myelocytic leukemia)) History of Previous Operations: Relevant previous surgery/procedure and date(s) (History of lumpectomy) Allergies: Allergies Allergy/AdvReac Type Severity Reaction Status Date / Time No Known Allergies Allergy Verified 05/30/24 08:13 Review of Systems Sugical H&P ROS: Negative: Constitution, Cardiovascular, Respiratory and Gastrointestinal Exam Surgical H&P Exam: Normal: Heart, Normal: Lungs, Normal: Extremities and Normal: Abdomen Plan Diagnosis/Plan: Unchanged I have reviewed the history and physical and performed a pertinent physical examination on my patient. No changes have occurred unless specified. Time Spent With Patient Time: Total time managing care of this patient today ____ minutes.
[2024-08-15 08:00] VITALS: BP 148/61; PULSE 67; RESP 16; TEMP 36.1; O2SAT 99
[2024-08-15] MEDS: Lactated Ringers 1,000 ML 100 ML IVCONT (08:06)
--- NOTE | 2024-08-15 08:45 | HO.OPN-COLON ---
Colonoscopy Operative Note Operative Note Date of Service: 08/15/24 Narrative: FLEXIBLE TRANSORAL UPPER GASTROINTESTINAL ENDOSCOPY WITH BIOPSIES AND COLONOSCOPY TILL CECUM WITH BIOPSIES Pre-op diagnosis: Colon cancer screening, GERD Post-op diagnosis: GERD, Gastritis, Gastric polyp, Gastric AVM, Colon Polyps, Diverticulosis, hemorrhoids Endoscopist:? Anthony Vizcarra MD Anesthesia:?MAC UPPER ENDOSCOPY Consent: Indications for the procedure and potential complications of bleeding, perforation, reaction to medications and missed diagnosis were discussed with the patient and informed consent was obtained. Instrument: Olympus GIF H 190 mid size upper endoscope Monitoring: Vital signs and clinical assessment, continuous EKG monitoring, Pulse oximetry, Carbon Dioxide monitoring and blood pressure monitoring were done throughout the procedure. Procedure: The patient was placed in the left lateral decubitis position and pre-procedure medications were administered and a bite block was placed. The endoscope was inserted into the mouth and advanced under direct vision to the third part of duodenum. A careful inspection was made as the upper endoscope was withdrawn including a retroflexed examination of the proximal stomach; Findings and interventions are described below. Findings: Larynx: Normal Esophagus: GE junction at 35 cms. No esophagitis or Escobar's. Stomach: Multiple 2-3 mm benign appearing polyps in the gastric fundus - biopsied. Moderate diffuse gastric erythema - biopsies were obtained from the antrum. A 5 mm non-bleeding AVM in the gastric body Grade 2 flap valve on retroflexed examination of the cardia. Duodenum: Normal bulb and descending duodenum Intervention: Biopsies as noted above COLONOSCOPY PROCEDURE NOTE Instrument: Olympus PCF H 190 L variable stiffness pediatric colonoscope Monitoring: Vital signs and clinical assessment, intermittent blood pressure monitoring, continuous EKG monitoring, Pulse oximetry and Carbon Dioxide monitoring were done throughout the procedure. Please see anesthesia flowsheet. Colon withdrawl time was 20 minutes. Procedure: The patient was placed in the left lateral decubitis position and pre-procedure medications were administered. After a digital rectal examination of the ano-rectum, the video colonoscope was inserted into the rectum and advanced through the colon to the cecum. The colonoscope was slowly withdrawn in a retrograde panoramic fashion and the colon mucosa was carefully examined including a retroflexed view of the rectum. Findings and interventions are described below. Procedure Difficulty: without difficulty Findings: Terminal Ileum: Not evaluated Cecum: Normal Ascending Colon: Normal Transverse Colon: Two 3-4 mm sessile polyps - removed with a cold biopsy Descending Colon: Moderate diverticulosis Sigmoid Colon: Severe diverticulosis with luminal narrowing Rectum: Normal Ano-rectum: Moderate internal hemorrhoids Colon preparation: Good after copious irrigation. [place] Bowel Preparation Scale Right colon; 2 Transverse colon: 2 Left colon; 2 (0 = Unprepared colon segment with mucosa not seen due to solid stool that cannot be cleared. 1 = Portion of mucosa of the colon segment seen, but other areas of the colon segment not well seen due to staining, residual stool and/or opaque liquid. 2 = Minor amount of residual staining, small fragments of stool and/or opaque liquid, but mucosa of colon segment seen well. 3 = Entire mucosa of colon segment seen well with no residual staining, small fragments of stool or opaque liquid) Impression and Post Procedure Diagnosis: Endoscopy Findings: ESOPHAGUS: Normal STOMACH: Diffuse gastritis and benign-appearing gastric polyps DUODENUM: Normal Colonoscopy Findings: Two small polyps were removed Moderate diverticulosis seen in the left colon Moderate hemorrhoids on retroflexed exam. Plan: Pt to schedule a FU appointment with Dianne Brandon NP Repeat Colonoscopy in 5 years if polyps are adenomatous and 10 year if polyps are hyperplastic. Above findings were reviewed with the patient and relevant handouts were given and the discharge area. BIOPSIES SHOWED: A. Gastric antrum, biopsy: Gastric antral mucosa with reactive changes, congestion, and minimal chronic inactive gastritis; negative for intestinal metaplasia and dysplasia. B. Gastric polyps, biopsy: Fundic gland and hyperplastic polyps with minimal chronic inactive inflammation, and focal lamina propria amorphous material; negative for intestinal metaplasia and dysplasia. C. Colon, transverse, polyps: Sessile serrated lesion/polyp without dysplasia Letter sent with biopsy results advising repeat colonoscopy in 5 years. Patient was placed on the colonoscopy recall list.
[2024-08-15 09:31] VITALS: BP 124/54; PULSE 71; RESP 23; TEMP 36.2; O2SAT 95
[2024-08-15 09:45] VITALS: BP 130/64; PULSE 66; RESP 18; O2SAT 98
[2024-08-15 10:00] VITALS: BP 129/57; PULSE 64; RESP 18; O2SAT 98
== END 2024-08-15 10:40 | disposition home or self-care (01) ==
PROVIDERS: PCP Physician Assistant Medical; Visit Provider Internal Medicine Gastroenterology
PROC: (CPT 45380; principal; 2024-08-15 08:30)
DX: Z12.11 Encounter for screening for malignant neoplasm of colon (principal); D12.3 Benign neoplasm of transverse colon; K57.30 Diverticulosis of large intestine without perforation or abscess without bleeding; K56.699 Other intestinal obstruction unspecified as to partial versus complete obstruction; K64.8 Other hemorrhoids; K21.00 Gastro-esophageal reflux disease with esophagitis, without bleeding; K29.70 Gastritis, unspecified, without bleeding; K31.7 Polyp of stomach and duodenum; K31.819 Angiodysplasia of stomach and duodenum without bleeding; E11.9 Type 2 diabetes mellitus without complications; I10 Essential (primary) hypertension; E78.5 Hyperlipidemia, unspecified; C92.10 Chronic myeloid leukemia, BCR/ABL-positive, not having achieved remission; Z87.891 Personal history of nicotine dependence; Z79.899 Other long term (current) drug therapy
CPT/HCPCS: 45380; 43239; 88305; 88313; 88342; J2003; J2405; J2704

== ENCOUNTER → 2024-08-15 06:54 | Outpatient (BNV) | payer OTHER, SELFPAY | PROVIDERS: PCP Physician Assistant Medical; Visit Provider Internal Medicine Gastroenterology | DX: Z12.11 Encounter for screening for malignant neoplasm of colon (principal); D12.3 Benign neoplasm of transverse colon; K57.90 Diverticulosis of intestine, part unspecified, without perforation or abscess without bleeding; K64.8 Other hemorrhoids; K21.9 Gastro-esophageal reflux disease without esophagitis; K31.7 Polyp of stomach and duodenum; Q27.33 Arteriovenous malformation of digestive system vessel; K29.70 Gastritis, unspecified, without bleeding | CPT/HCPCS: 43239; 45380 ==

== ENCOUNTER 2024-08-27 14:43 | Outpatient (AMB) | payer OTHER, SELFPAY ==
[2024-08-27 14:46] VITALS: BP 136/58; PULSE 70; O2SAT 99; BMI 31.5
--- NOTE | 2024-08-27 14:46 | MHC.OFFVIS ---
Vital Signs 08/27/24 14:46 Height 5 ft 2 in Weight 172 lb BMI 31.5 BP 136/58 L Blood Pressure Location Rt brachial Position Sitting Pulse 70 Pulse Source Pulse Oximeter Pulse Oximetry (%) 99 Oxygen Delivery Method Room Air Intake Visit Reasons: egd colo sloane 08/15 Intake Note: ESTABLISHED PATIENT for s/p duo w/ RM Chief Complaint; Pt denies any GI sx at this time. Pantoprazole controlling reflux well. 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 Patient reports acid reflux. Worse at night time. Patient is taking famotidine, however reports that it is not helping as much. Patient denies dyspepsia, dysphagia or odynophagia. Will send patient for upper endoscopy to rule out gastritis, esophagitis, gastric or peptic ulcer, H pylori. Denies any issues with anesthesia in the past.? Denies any history of sleep apnea.? No history infectious diseases in the past or present.? Not on any anticoagulation therapy.? No family or personal history of colon cancer.? Patient denies melena, hematochezia, unintentional weight loss or ribbon like stools.? Discussed at length the pre-procedure,? prep, diet & medications as well as what to expect prior, during and after the procedure.?? Stressed the importance of good bowel prep.? Recommended the use of Vaseline or Calmoseptine OTC & baby wipes with bowel movements to promote comfort.? ?Patient verbalizes understanding and agrees to plan of care.? She was given the opportunity to ask questions and all questions answered.? We will see her after the procedure.? Medications New pantoprazole 20 mg PO DAILY 30 tabs 3RF bisacodyl (Dulcolax (bisacodyl)) take 4 tabs at noon the day before your colonoscopy 20 mg (4 x 5 mg) PO ONCE 1 day 4 tabs 0RF Z12.11 polyethylene glycol 3350 (Miralax) As directed by gastroenterology department at [facility] 238 grams PO ONCE 238 grams 0RF Z12.11 UPPER ENDOSCOPY AND COLONOSCOPY Findings: Larynx: Normal Esophagus: GE junction at 35 cms. No esophagitis or Escobar's. Stomach: Multiple 2-3 mm benign appearing polyps in the gastric fundus - biopsied. Moderate diffuse gastric erythema - biopsies were obtained from the antrum. A 5 mm non-bleeding AVM in the gastric body Grade 2 flap valve on retroflexed examination of the cardia. Duodenum: Normal bulb and descending duodenum Intervention: Biopsies as noted above COLONOSCOPY PROCEDURE NOTE Instrument: Olympus PCF H 190 L variable stiffness pediatric colonoscope Monitoring: Vital signs and clinical assessment, intermittent blood pressure monitoring, continuous EKG monitoring, Pulse oximetry and Carbon Dioxide monitoring were done throughout the procedure. Please see anesthesia flowsheet. Colon withdrawl time was 20 minutes. Procedure: The patient was placed in the left lateral decubitis position and pre-procedure medications were administered. After a digital rectal examination of the ano-rectum, the video colonoscope was inserted into the rectum and advanced through the colon to the cecum. The colonoscope was slowly withdrawn in a retrograde panoramic fashion and the colon mucosa was carefully examined including a retroflexed view of the rectum. Findings and interventions are described below. Procedure Difficulty: without difficulty Findings: Terminal Ileum: Not evaluated Cecum: Normal Ascending Colon: Normal Transverse Colon: Two 3-4 mm sessile polyps - removed with a cold biopsy Descending Colon: Moderate diverticulosis Sigmoid Colon: Severe diverticulosis with luminal narrowing Rectum: Normal Ano-rectum: Moderate internal hemorrhoids Colon preparation: Good after copious irrigation. [place] Bowel Preparation Scale Right colon; 2 Transverse colon: 2 Left colon; 2 (0 = Unprepared colon segment with mucosa not seen due to solid stool that cannot be cleared. 1 = Portion of mucosa of the colon segment seen, but other areas of the colon segment not well seen due to staining, residual stool and/or opaque liquid. 2 = Minor amount of residual staining, small fragments of stool and/or opaque liquid, but mucosa of colon segment seen well. 3 = Entire mucosa of colon segment seen well with no residual staining, small fragments of stool or opaque liquid) Impression and Post Procedure Diagnosis: Endoscopy Findings: ESOPHAGUS: Normal STOMACH: Diffuse gastritis and benign-appearing gastric polyps DUODENUM: Normal Colonoscopy Findings: Two small polyps were removed Moderate diverticulosis seen in the left colon Moderate hemorrhoids on retroflexed exam. Plan: Repeat Colonoscopy in 5 years if polyps are adenomatous and 10 year if polyps are hyperplastic. Above findings were reviewed with the patient and relevant handouts were given and the discharge area. BIOPSIES SHOWED: A. Gastric antrum, biopsy: Gastric antral mucosa with reactive changes, congestion, and minimal chronic inactive gastritis; negative for intestinal metaplasia and dysplasia. B. Gastric polyps, biopsy: Fundic gland and hyperplastic polyps with minimal chronic inactive inflammation, and focal lamina propria amorphous material; negative for intestinal metaplasia and dysplasia. C. Colon, transverse, polyps: Sessile serrated lesion/polyp without dysplasia Letter sent with biopsy results advising repeat colonoscopy in 5 years. Patient was placed on the colonoscopy recall list. TODAY'S VISIT: Patient is here today for follow-up and discuss upper endoscopy in colonoscopy results. Patient denies any ill effects from the prep, anesthesia or procedure itself. Patient reports that she has been feeling fairly well since the procedure. Pantoprazole has been helping with acid reflux throughout the day, sometimes patient admits to have acid reflux at night. Denies any nausea or vomiting. Denies any dyspepsia, dysphagia or odynophagia. Patient reports that she is moving her bowels without any issues. Denies any melena, hematochezia. Colonoscopy showed sessile serrated polyp without dysplasia and recommendation was made for 5 year follow-up. Patient denies any other GI concerning symptoms today [facility] Medical History (Updated 09/13/24 @ 20:39 by Daphne Brandon, [facility]) Diverticulosis Colon polyps GERD (gastroesophageal reflux disease) Prediabetes Obesity, Class I, BMI 30.0-34.9 (see actual BMI) Neuropathy of both feet Lower extremity edema Left-sided chest pain HTN (hypertension) Hyperlipidemia CML (chronic myelocytic leukemia) Anxiety Surgical History H/O lumpectomy Family History Mother HTN (hypertension) Hypercholesteremia Cardiovascular disease Father Hypercholesteremia HTN (hypertension) Cardiovascular disease Social History Housing: House Patient Tobacco Use Status: Former Tobacco user Years Smoked: Teenage years e-Cigarette/Vaping Use: Never Used Second Hand Smoke Exposure: No service: No Current occupational status: employed 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 Current occupational exposures/hazards: No Cognitive needs: No Hearing needs: No Vision needs: Yes (reading glasses) Review of Systems Const Denies weight gain and Denies weight loss ENT Reports no additional complaints, Denies dysphagia and Denies odynophagia Card Reports no additional complaints Resp Reports no additional complaints GI Denies abdominal pain, Denies belching, Denies melena, Denies bloating, Denies change in bowel habits, Denies dysphagia, Denies excessive flatus, Denies dyspepsia, Reports heartburn (Occasional at bedtime), Denies diarrhea, Denies loose stools, Denies nausea, Denies odynophagia and Denies vomiting Musc Reports no additional complaints Neuro Reports no additional complaints Psych Reports no additional complaints Endo Reports no additional complaints Physical Exam Vital Signs: Last Vital Signs Pulse 70 08/27/24 14:46 BP 136/58 L 08/27/24 14:46 Pulse Ox 99 08/27/24 14:46 Oxygen Delivery Method Room Air 08/27/24 14:46 BMI result Body Mass Index 31.5 Const General: healthy appearing, no acute distress and well developed Nutritional Appearance: well nourished and obese Orientation/consciousness: patient oriented x3 Resp Effort & Inspection: normal respiratory effort, able to speak in complete sentences, no tracheal deviation and symmetric chest movement Auscultation: clear to auscultation bilaterally Cardio Rate: regular rate GI Inspection: Yes normal to inspection, No distended and Yes obesity Palpation (GI): Soft to palpation, not firm, nontender and No hepatosplenomegaly present Auscultation: normal bowel sounds General: Yes no CVA tenderness Back/Spine/Pelvis Back: no CVA tenderness Skin General skin exam: elasticity normal, turgor normal and dry skin Neuro General: patient oriented x3 Psych Appearance: grossly normal Mental Status: mental status grossly normal Assessment & Plan Assessment & Plan (1) GERD (gastroesophageal reflux disease): Code(s): K21.9 - Gastro-esophageal reflux disease without esophagitis Category: Medical Qualifiers: Esophagitis presence: esophagitis presence not specified Qualified Code(s): K21.9 - Gastro-esophageal reflux disease without esophagitis (2) Diverticulosis: Code(s): K57.90 - Diverticulosis of intestine, part unspecified, without perforation or abscess without bleeding Category: Medical (3) Hemorrhoids without complication: Code(s): K64.9 - Unspecified hemorrhoids Plan Patient will continue taking pantoprazole daily. May use famotidine at bedtime as needed. Continue avoiding dietary triggers and late night snacking. Staying upright for minimum 3 hours after meals discussed with patient. Colonoscopy in 5 years, sooner if clinically necessary. Patient will return to the office in 4 months to re-evaluate. Patient was encouraged to call our office if she will have any GI concerning symptoms. She is agreeable to this plan and verbalizes understanding of instructions. She was given the opportunity to ask questions and all questions answered. Thank you for allowing me to participate in her care Medications: New famotidine (Pepcid) 20 mg PO BEDTIME 90 tabs 3RF K21.9 - Gastro-esophageal reflux disease without esophagitis Refilled pantoprazole 20 mg PO DAILY 90 tabs 2RF Coding Level of Care Code Est Pt Level 3 (42057) Diagnoses Gastroesophageal reflux disease, unspecified whether esophagitis present K21.9 Esophagitis presence: esophagitis presence not specified Diverticulosis K57.90 Hemorrhoids without complication K64.9 Time Spent (min) 30 Comment 20 minutes spent with patient and additional 10 minutes spent reviewing her records
== END 2024-08-27 15:17 | disposition home or self-care (01) ==
LOC: HO.HGI 14:44
PROVIDERS: PCP Physician Assistant Medical; Visit Provider Nurse Practitioner Family
DX: K21.9 Gastro-esophageal reflux disease without esophagitis (principal); K57.90 Diverticulosis of intestine, part unspecified, without perforation or abscess without bleeding; K64.9 Unspecified hemorrhoids
CPT/HCPCS: 99213

== ENCOUNTER 2024-12-24 14:40 | Outpatient (AMB) | payer OTHER, SELFPAY ==
--- NOTE | 2024-12-24 14:42 | MHC.OFFVIS ---
Vital Signs 12/24/24 14:45 Height 5 ft 2 in Weight 171 lb 15.369 oz BMI 31.4 BP 136/71 Blood Pressure Location Lt brachial Position Sitting Pulse 77 Intake Visit Reasons: 4m Intake Note: Kassidy presents in the office as a 4 month follow up. CC: she states that she is feeling okay for the mst part - some stomch issues at times. 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 May use famotidine at bedtime as needed. Continue avoiding dietary triggers and late night snacking. Staying upright for minimum 3 hours after meals discussed with patient. Colonoscopy in 5 years, sooner if clinically necessary. Patient will return to the office in 4 months to re-evaluate. Patient was encouraged to call our office if she will have any GI concerning symptoms. She is agreeable to this plan and verbalizes understanding of instructions. She was given the opportunity to ask questions and all questions answered. ? Thank you for allowing me to participate in her care New famotidine (Pepcid) 20 mg PO BEDTIME 90 tabs 3RF K21.9 Refilled pantoprazole 20 mg PO DAILY 90 tabs 2RF TODAY'S VISIT Patient is here today for follow-up. Patient reports that she has been doing well taking pantoprazole daily. Tries to avoid dietary triggers. Patient takes famotidine not every day. Takes it at bedtime as needed. Patient reports that she is moving her bowels well, however she reports that occasionally she will have a postprandial diarrhea. Patient states that she started taking probiotics and that makes her go to the bathroom quick. Patient usually has couple soft stools after taking it. Diagnosed with diverticulosis on her colonoscopy in August of this year. Denies melena, hematochezia, unintentional weight loss or ribbon like stools. Patient denies any other GI concerning symptoms. Denies dyspepsia, dysphagia or odynophagia. [facility] Medical History Vitamin D deficiency Diverticulosis Colon polyps GERD (gastroesophageal reflux disease) Prediabetes Obesity, Class I, BMI 30.0-34.9 (see actual BMI) Neuropathy of both feet Lower extremity edema Left-sided chest pain HTN (hypertension) Hyperlipidemia CML (chronic myelocytic leukemia) Anxiety Surgical History H/O lumpectomy Family History Mother HTN (hypertension) Hypercholesteremia Cardiovascular disease Father Hypercholesteremia HTN (hypertension) Cardiovascular disease Social History Housing: House Patient Tobacco Use Status: Former Tobacco user Years Smoked: Teenage years e-Cigarette/Vaping Use: Never Used Second Hand Smoke Exposure: No service: No Current occupational status: employed 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 Current occupational exposures/hazards: No Cognitive needs: No Hearing needs: No Vision needs: Yes (reading glasses) Review of Systems Const Denies weight gain and Denies weight loss ENT Reports no additional complaints, Denies dysphagia and Denies odynophagia Card Reports no additional complaints Resp Reports no additional complaints GI Denies abdominal pain, Denies belching, Denies melena, Denies bloating, Denies change in bowel habits, Denies dysphagia, Denies excessive flatus, Denies dyspepsia, Denies heartburn, Denies diarrhea, Reports loose stools (Occasional), Denies nausea, Denies odynophagia and Denies vomiting Musc Reports no additional complaints Neuro Reports no additional complaints Psych Reports no additional complaints Endo Reports no additional complaints Physical Exam Vital Signs: Last Vital Signs Pulse 77 12/24/24 14:45 BP 136/71 12/24/24 14:45 BMI result Body Mass Index 31.4 Const General: healthy appearing, no acute distress and well developed Nutritional Appearance: well nourished and obese Orientation/consciousness: patient oriented x3 Resp Effort & Inspection: normal respiratory effort, able to speak in complete sentences, no tracheal deviation and symmetric chest movement Auscultation: clear to auscultation bilaterally Cardio Rate: regular rate GI Inspection: Yes normal to inspection, No distended and Yes obesity Palpation (GI): Soft to palpation, not firm, nontender and No hepatosplenomegaly present Auscultation: normal bowel sounds General: Yes no CVA tenderness Back/Spine/Pelvis Back: no CVA tenderness Skin General skin exam: elasticity normal, turgor normal and dry skin Neuro General: patient oriented x3 Psych Appearance: grossly normal Mental Status: mental status grossly normal Assessment & Plan Assessment & Plan (1) GERD (gastroesophageal reflux disease): Code(s): K21.9 - Gastro-esophageal reflux disease without esophagitis Category: Medical Qualifiers: Esophagitis presence: esophagitis presence not specified Qualified Code(s): K21.9 - Gastro-esophageal reflux disease without esophagitis (2) Diverticulosis: Code(s): K57.90 - Diverticulosis of intestine, part unspecified, without perforation or abscess without bleeding Category: Medical Plan Continue pantoprazole daily and famotidine as needed. Avoid dietary triggers and late night snacking. Staying upright for minimum 3 hours after meals discussed with patient. Patient will increase fiber intake. Patient can take [id number] fiber with pre and probiotics. Increase fluid intake and activity to promote better bowel motility. Patient will return to our office in 1 year. She will call if she has any GI concerning symptoms. Colonoscopy is not due for another 4-1/2 years. Patient will call us if she will have any symptoms and needed to have 1 them sooner. She is agreeable to current plan of care and verbalizes understanding of instructions. She was given the opportunity to ask questions and all questions answered. Thank you for allowing me to participate in her care Coding Level of Care Code Est Pt Level 3 (17018) Diagnoses Gastroesophageal reflux disease, unspecified whether esophagitis present K21.9 Esophagitis presence: esophagitis presence not specified Diverticulosis K57.90 Time Spent (min) 30 Comment 20 minutes spent with patient and additional 10 minutes spent reviewing her records
[2024-12-24 14:45] VITALS: BP 136/71; PULSE 77; BMI 31.4
--- OUTSIDE RECORDS SUMMARY | 2024-12-24 14:48 | XMS_ITS ---
Author Name [facility] Organization Unknown Care Team Organization Name Specialty Phone Email Start Date End Da te [facility] PAULA CRUZ Primary Care 03/21/2022 4
--- OUTSIDE RECORDS SUMMARY | 2024-12-24 14:48 | XMS_ITS | Clinical Summary ---
Author Organization [facility] Address [address] [place] [address] Care Team Providers Care Arc And Gas Welder Name Role Phone Leonora Vo Primary Care Provider [phone] Surgical History Surgery Date Site/Laterality Comments OTHER SURGICAL HISTORY PROCEDURE: HISTORY OTHER; COMMENT: rt breast bx 1999 MULTIPLE TOOTH EXTRACTIONS PROCEDURE: HISTORICAL DENTAL EXTRACTION Medical History Medical History Date Comments CML (chronic myelocytic leuk emia) ([facility] V24, [facility] V28) 07/01/2010 DX:CML (chronic myelocytic leukemia) ([facility]) Iron deficiency anemia, unspecified 07/01/2010 DX:Iron deficiency anemia, unspecified Hypertension 04/02/2020 DX:Hypertension Vitamin D deficiency 04/06/2020 DX:Vitamin D deficiency Family History Medical History Relation Name Comments Coronary artery disease Father Diabetes Father Hypertension Father Melanoma Father Cataracts Mother Coronary artery disease Mother late 60's Blindness Neg Hx Glaucoma Neg Hx Macular degeneration Neg Hx Strabismus Neg Hx Relation Name Status Comments Brother Alive cholesterol Father cabg htn choles t dm Mother cabg htn choles Social History Tobacco Use Types Packs/Day Years Used Date Smoking Tobacco: Never Smokeless Tobacco: Never Alcohol Use Standard Drinks/Week Comments Yes 0 (1 standard drink = 0.6 oz pur e alcohol) Comments Unknown Sex and Gender Information Value Date Recorded Sex Assigned at Not on file Legal Sex Female 11:45 AM EST Gender Identity Not on file Sexual Orientation Not on file Obstetrics History Plan of Treatment Health Maintenance Due Date Last Done Comments Breast Cancer Screening 1960 COVID-19 Vaccine (#1) 1963 Pneumococcal Vaccine: 50+ Years (1 of 2 - PCV) 1977 Zoster Vaccines (1 of 2) 1977 DTaP,Tdap,and Td Vaccines (2 - Td or Tdap) 07/01/2020 07/01/2010 Depression Screening 05/14/2024 Cholesterol Screening (Lipid Panel) 09/18/2024 Colorectal Cancer Screening: Stool Based Tests (FOBT/FIT) 09/18/2024 Falls Risk Assessment 09/18/2024 Hepatitis C Screening 09/18/2024 Hypertension/CHF/CAD Annual BMP Blood Test 09/18/2024 Osteoporosis Screening (Bone Density Screening) 09/18/2024 Social Influencers of Health Screening 09/18/2024 Influenza Vaccine (#1) 2025 0, 03/26/2018, 02/13/2017, Additional history exists RSV Immunization Adult Patients (1 - 1-dose 75+ series) 2033 HIB Vaccines Aged Out No longer eligi ble based on patient's age to complete this topic HPV Vaccines Aged Out No longer eligi ble based on patient's age to complete this topic Hepatitis A Vaccines Aged Out No long er eligible based on patient's age to complete this topic Hepatitis B Vaccines Aged Out No long er eligible based on patient's age to complete this topic IPV Vaccines Aged Out No longer eligi ble based on patient's age to complete this topic MMR Vaccines Aged Out No longer eligi ble based on patient's age to complete this topic Meningococcal ACWY Vaccine Aged Out N o longer eligible based on patient's age to complete this topic Meningococcal B Vaccine Aged Out No l onger eligible based on patient's age to complete this topic RSV Immunization Patients Under 20 months Aged Out No longer eligible based on patient's age to complete this topic Varicella Vaccines Aged Out No longer eligible based on patient's age to complete this topic Care Teams Arc And Gas Welder Relationship Specialty Start Date End Date Leonora Vo PA [address] [place] [address] PCP - General 10/09/23
== END 2024-12-24 15:08 | disposition home or self-care (01) ==
LOC: HO.HGI 14:41
PROVIDERS: PCP Physician Assistant Medical; Visit Provider Nurse Practitioner Family
DX: K21.9 Gastro-esophageal reflux disease without esophagitis (principal); K57.90 Diverticulosis of intestine, part unspecified, without perforation or abscess without bleeding
CPT/HCPCS: 99213

== ENCOUNTER 2025-01-01 14:50 | Outpatient (AMB) | payer OTHER, SELFPAY ==
--- OUTSIDE RECORDS SUMMARY | 2025-01-01 14:53 | XMS_ITS | Clinical Summary ---
Author Organization [facility] Address [address] [place] [address] Care Team Providers Care Promotions Intern Name Role Phone Leonora Vo Primary Care Provider [phone] Surgical History Surgery Date Site/Laterality Comments OTHER SURGICAL HISTORY PROCEDURE: HISTORY OTHER; COMMENT: rt breast bx 1999 MULTIPLE TOOTH EXTRACTIONS PROCEDURE: HISTORICAL DENTAL EXTRACTION Medical History Medical History Date Comments CML (chronic myelocytic leuk emia) ([facility]24, [facility] V28) 07/01/2010 DX:CML (chronic myelocytic leukemia) ([facility]) Iron deficiency anemia, unspecified 07/01/2010 DX:Iron deficiency [...] age to complete this topic Care Teams Promotions Intern Relationship Specialty Start Date End Date Leonora Vo PA [address] [place] [address] PCP - General 10/09/23
--- NOTE | 2025-01-01 14:54 | A.OFFPC_ITS ---
Vital Signs 01/01/25 15:01 Height 5 ft 2 in Weight 175 lb 4 oz BMI 32.1 BP 116/74 Blood Pressure Location Lt brachial Position Sitting Respiration 18 Pulse 67 Pulse Source Pulse Oximeter Temp Source Temporal Artery Scan Pulse Oximetry (%) 96 Oxygen Delivery Method Room Air Intake Visit Reasons: Physical Intake Note: Kassidy presents in the office today for her annual physical. Allergies No Known Allergies Allergy (Verified 01/01/25 14:57) Tobacco use date assessed: 01/01/25 Dental Screening Dental Screen Date: 01/01/25 Did you have a dental visit in the last 12 months?: Yes Did you have a dental problem in the last 6 months where you did not have access to dental care?: No Was dental information given to patient?: Patient has dentist HPI HPI Comments History of Present Illness Details Patient is a 64-year-old female with a past medical history of obesity, anxiety, hypertension, prediabetes and hyperlipidemia and CML presenting today for a physical exam. CV: We stopped diltiazem and increase lisinopril to 30 mg. Blood pressure is well-controlled. She also takes furosemide 20 mg b.i.d. Cholesterol is managed with atorvastatin 40 mg. She did follow with cardiology and last year had a stress test which was normal, echo unchanged from previous. Following with Cardiology. Dr. Rahman, and had a coronary artery calcium score on 02/07/24 which showed minimal stenosis in the left distal left main, mid LAD and distal RCA and mild diffuse mixed atherosclerotic plaque in the descending thoracic aorta. She had a lower extremity EMG in January at [facility] which was normal. Her legs feel heavy frequently. Taking the diuretic helps. We discontinued diltiazem because she thought it started or worsened after she began this medication. It has improved since she stopped the medicine. Still does get some swelling/discomfort on the plantar aspect of her bilateral feet. Right worse than left. Lower extremity edema is also a potential side effect of Gleevec. She saw vascular surgery, and evaluation demonstrated no significant reflux. She saw her oncologist in September, and she just had follow up lab work done. She is waiting to hear about the test results. Gleevec causes GI upset and decreased appetite for the patient so she takes it 4-5 days per week and reports she discussed this with Dr Garcia. Endo: Last A1c was 5.9%. Psych: Takes Ativan as needed for anxiety symptoms. sas developer appointment in February. She sees [facility] contract technical writer in [place]. Mamomgram and bone density test ordered. She had a colonoscopy in August 2024 which showed polyps. She is due for the next colonoscopy August 2029. She will sign a release for [place] transfer records. She thinks pneumonia vaccine is up to date. She sees [facility] for skin exams annually. ROS: Constitutional: No unexplained weight loss, fever, chills, fatigue or night sweats. Eyes: No vision changes, blurry vision, double vision, eye pain, eye redness, eye discharge. ENT: No hearing loss, sneezing, congestion, runny nose or sore throat. Respiratory: No shortness of breath, cough or sputum production. Cardiovascular: No chest pain, chest pressure or chest discomfort. No palpitations Gastrointestinal: No anorexia, nausea, vomiting or diarrhea. No abdominal pain or blood in stool. Genitourinary: No dysuria, hematuria, urinary frequency. Neurologic: No headache, dizziness, syncope, unilateral weakness, ataxia, numbness or tingling in the extremities. Musculoskeletal: No muscle pain, back pain, joint pain or swelling. Hematologic/Lymphatics: No bleeding or bruising. No painful lymph nodes. Skin: No rash Endocrine: No cold or heat intolerance. No polyuria or polydipsia. Psychiatric: No depression. No SI/HI. Physical exam: Constitutional: Alert, in no distress. Head: Normocephalic. Eyes: Pupils are equal, round and reactive to light. Extraocular muscles intact. Ear, Nose and Throat: Canals clear. TMs normal. Normal nasal mucosa. No nasal discharge. No oral lesions. Neck: Supple, Full range of motion. No lymphadenopathy. No palpable thyroid masses. Respiratory: Clear to auscultation. Cardiovascular: S1 S2 regular. No murmurs. Gastrointestinal: Abdomen soft, non-tender, non-distended. Normal bowel sounds. No palpable masses. Neurologic: No focal neurological deficits. Symmetric patellar reflexes. Moves all extremities spontaneously. Sensation intact bilaterally. Skin: No rashes Musculoskeletal: No gross deformities. Normal range of motion. Extremities: Warm and well perfused. No clubbing, cyanosis or edema. Intact peripheral pulses bilaterally. Psychiatric: Normal mood and affect [facility] Medical History (Updated 01/01/25 @ 15:32 by DOMINIC Arroyo) Routine physical examination Vitamin D deficiency Diverticulosis Colon polyps GERD (gastroesophageal reflux disease) Prediabetes Obesity, Class I, BMI 30.0-34.9 (see actual BMI) Neuropathy of both feet Lower extremity edema Left-sided chest pain HTN (hypertension) Hyperlipidemia CML (chronic myelocytic leukemia) Anxiety Surgical History H/O lumpectomy Family History (Updated 01/01/25 @ 15:00 by Mora Coleman MA) Mother HTN (hypertension) Hypercholesteremia Cardiovascular disease Father Hypercholesteremia HTN (hypertension) Cardiovascular disease Social History (Updated 01/01/25 @ 15:00 by Mora Coleman MA) Housing: House Alcohol intake: current Alcohol intake frequency: does not drink Patient Tobacco Use Status: Former Tobacco user Years Smoked: Teenage years e-Cigarette/Vaping Use: Never Used Second Hand Smoke Exposure: No service: No Current occupational status: employed 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 1. Little interest or pleasure in doing things: not at all 2. Feeling down, depressed, or hopeless: not at all 3. Trouble falling or staying asleep, or sleeping too much: several days 4. Feeling tired or having little energy: several days 5. Poor appetite or overeating: not at all 6. Feeling bad about yourself - or that you are a failure or have let yourself or your family down: not at all 7. Trouble concentrating on things, such as reading the newspaper or watching television: several days 8. Moving or speaking so slowly that other people could have noticed. Or the opposite - being so fidgety or restless that you have been moving around a lot more than usual: not at all 9. Thoughts that you would be better off or of hurting yourself in some way: not at all Total score: 3 Depression Screening Interpretation: Negative Depression Screening Done: Yes 66384 - PHQ-9 Billing: Yes Source: Developed by Drs. Jhon Lozano, Cristobal Conner and colleagues, with an educational arnaldo from [employer]. Thrive Questionnaire Date Thrive assessed: 01/01/25 I am a: Patient What is your living situation today?: I have a steady place to live Within the past 12 months, did the food you bought not last and you didn't have the money to get more?: Never true Within the past 12 months, did you worry whether your food would run out before you got money to buy more?: Never true Do you have trouble paying for medicines?: No Do you have trouble getting transportation to medical appointments?: No Do you have trouble paying your heating and electricity bill?: No Do you have trouble taking care of your child, family member or friend?: No Do you have trouble with day-to-day activities such as bathing, preparing meals, shopping, managing finances, etc.?: No Are you currently unemployed and looking for a job?: No Are you interested in more education?: No Please select the resources that you would like help with: None Currently or been in a relationship where the following occur: No concerns reported THRIVE Score: 0 AUDIT C Alcohol Use Questionnaire (AUDIT-C) 1. How often do you have a drink containing alcohol?: 2-4 times a month 2. How many drinks containing alcohol do you have on a typical day when you are drinking?: 1 or 2 3. How often do you have six or more drinks on one occasion?: Never Total Score: 2 HEATHER-7 AMB Questionnaire HEATHER-7 Date HEATHER - 7 assessed: 01/01/25 Feeling nervous, anxious, or on edge: 0 = Not at all Not being able to stop or control worryin = Several days Worrying too much about different things: 1 = Several days Trouble relaxin = Several days Being so restless that it is hard to sit still: 1 = Several days Becoming easily annoyed or irritable: 0 = Not at all Feeling afraid as if something awful might happen: 1 = Several days Total HEATHER-7 score (0-4 normal; 5-9 mild; 10-14 moderate; 15-21 severe): 5 Source: Developed by Drs. Jhon Lozano, Cristobal Conner and colleagues, with an educational arnaldo from [employer]. HEATHER-7 Assessment Billing HEATHER-7 Assessment Tool: HEATHER-7 Assessment 69699 Physical exam (Primary Care) Vital Signs: Last Vital Signs Pulse 67 01/01/25 15:01 Resp 18 01/01/25 15:01 BP 116/74 01/01/25 15:01 Pulse Ox 96 01/01/25 15:01 Oxygen Delivery Method Room Air 01/01/25 15:01 BMI result Body Mass Index 32.1 Tobacco/Smoking Status: Tobacco use Status Tobacco use date assessed 01/01/25 01/01/25 15:07 Patient Tobacco Use Status Former Tobacco user 01/01/25 15:00 e-Cigarette/Vaping Use Never Used 01/01/25 15:00 PHQ-9: PHQ-9 Score PHQ-9: Total score 3 01/01/25 15:21 Depression Screening Interpretation: Negative Thrive Assessment: Date of Thrive Assessment Date Thrive assessed 01/01/25 01/01/25 14:56 Currently or been in a relationship where the following occur: No concerns reported Coding Level of Care Code Est Pt Prev Care >65y(29405) Diagnoses Routine physical examination Z00.00 CML (chronic myelocytic leukemia) C92.10 Lower extremity edema R60.0 Prediabetes R73.03 Primary hypertension I10 Hypertension type: primary hypertension Mixed hyperlipidemia E78.2 Hyperlipidemia type: mixed hyperlipidemia Neuropathy of both feet G57.93 Additional Codes HEATHER-7 Assessment Billing - HEATHER-7 Assessment Tool: HEATHER-7 Assessment [id number] ([id number]) PHQ-9 - 96461 - PHQ-9 Billing: Yes ([id number]) Assessment & Plan Assessment & Plan (1) Routine physical examination: Code(s): Z00.00 - Encounter for general adult medical examination without abnormal findings Category: Medical (2) CML (chronic myelocytic leukemia): Code(s): C92.10 - Chronic myeloid leukemia, BCR/ABL-positive, not having achieved remission Category: Medical (3) Lower extremity edema: Code(s): R60.0 - Localized edema Category: Medical (4) Prediabetes: Code(s): R73.03 - Prediabetes Category: Medical (5) HTN (hypertension): Code(s): I10 - Essential (primary) hypertension Category: Medical Qualifiers: Hypertension type: primary hypertension Qualified Code(s): I10 - Essential (primary) hypertension (6) Hyperlipidemia: Code(s): E78.5 - Hyperlipidemia, unspecified Category: Medical Qualifiers: Hyperlipidemia type: mixed hyperlipidemia Qualified Code(s): E78.2 - Mixed hyperlipidemia (7) Neuropathy of both feet: Code(s): G57.93 - Unspecified mononeuropathy of bilateral lower limbs Category: Medical Plan Patient is seen today for a routine physical. As part of this visit we reviewed the following issues, which are considered and essential part of preventative health in this age group: - Breast Cancer screening - Annual Turbine Measurements Engineer exam - Screening for colon cancer - Blood pressure screening annually - Cholesterol screening - Osteoporosis prevention including calcium/vitamin D intake, weight bearing exercise & smoking cessation - Nutritional and exercise counseling - Counseling of injury prevention including fire prevention, smoke alarms and seat belt usage - Screening for depression - Education about skin cancer - Recommendations about immunizations - Recommendation of an eye exam - Screening for substance abuse She will remain off diltiazem. Her blood pressure is well controlled on Lisinopril. Continue Atorvastatin, target LDL less than 70 given minimal/mild atherosclerosis on her coronary artery CT scan. She will continue her other medications including her diuretic. Continue Ativan 1 mg every 8 hours as needed for anxiety. Reviewed it is a controlled substance that is addictive. She is not to stop it abruptly. Do not drink alcohol with this medication. Do not drive or operate heavy machinery. Follow up in 6 months. Orders: Orders MM screening mammo BI 01/01/25 Z12.31 - Encounter for screening mammogram for malignant neoplasm of breast Vitamin D 25-OH (D2 and D3) 01/01/25 M85.80 - Other specified disorders of bone density and structure, unspecified site, Z00.00 - Encounter for general adult medical examination without abnormal findings Lipid Panel 01/01/25 E78.5 - Hyperlipidemia, unspecified, Z00.00 - Encounter for general adult medical examination without abnormal findings Comprehensive Met. Panel 01/01/25 Z00.00 - Encounter for general adult medical examination without abnormal findings XR DEXA axial skeleton 01/01/25 Z78.0 - Asymptomatic menopausal state Hemoglobin A1c 01/01/25 R73.9 - Hyperglycemia, unspecified, Z00.00 - Encounter for general adult medical examination without abnormal findings
[2025-01-01 15:01] VITALS: BP 116/74; PULSE 67; RESP 18; O2SAT 96; BMI 32.1
== END 2025-01-01 15:45 | disposition home or self-care (01) ==
LOC: HO.HMCFM 14:50
PROVIDERS: PCP Physician Assistant Medical; Visit Provider Physician Assistant Medical
DX: Z00.00 Encounter for general adult medical examination without abnormal findings (principal); C92.10 Chronic myeloid leukemia, BCR/ABL-positive, not having achieved remission; R60.0 Localized edema; R73.03 Prediabetes; I10 Essential (primary) hypertension; E78.2 Mixed hyperlipidemia; G57.93 Unspecified mononeuropathy of bilateral lower limbs

== ENCOUNTER → 2025-01-01 14:50 | Outpatient (BNVA) | payer OTHER, SELFPAY | PROVIDERS: PCP Physician Assistant Medical; Visit Provider Physician Assistant Medical | DX: Z00.00 Encounter for general adult medical examination without abnormal findings (principal); C92.10 Chronic myeloid leukemia, BCR/ABL-positive, not having achieved remission; R60.0 Localized edema; R73.03 Prediabetes; I10 Essential (primary) hypertension; E78.2 Mixed hyperlipidemia; G57.93 Unspecified mononeuropathy of bilateral lower limbs; E66.9 Obesity, unspecified; Z68.32 Body mass index [BMI] 32.0-32.9, adult; Z79.899 Other long term (current) drug therapy; Z13.31 Encounter for screening for depression; Z13.39 Encounter for screening examination for other mental health and behavioral disorders | CPT/HCPCS: 96127 ==

== ENCOUNTER 2025-01-22 06:59 | Outpatient (REF) | payer OTHER, SELFPAY ==
--- OUTSIDE RECORDS SUMMARY | 2025-01-22 07:01 | XMS_ITS | Clinical Summary ---
Author Organization [facility] Address [address] [place] [address] Care Team Providers Care Pumping Station Engineer Name Role Phone Leonora Vo Primary Care Provider [phone] Surgical History Surgery Date Site/Laterality Comments OTHER SURGICAL HISTORY PROCEDURE: HISTORY OTHER; COMMENT: rt breast bx 1999 MULTIPLE TOOTH EXTRACTIONS PROCEDURE: HISTORICAL DENTAL EXTRACTION Medical History Medical History Date Comments CML (chronic myelocytic leuk emia) ([facility] V24, [facility] V28) 07/01/2010 DX:CML (chronic myelocytic leukemia) ([facility]) Iron deficiency anemia, unspecified 07/01/2010 DX:Iron deficiency [...] age to complete this topic Care Teams Pumping Station Engineer Relationship Specialty Start Date End Date Leonora Vo PA [address] [place] [address] PCP - General 10/09/23
[2025-01-22 10:28] LABS: Hemoglobin A1C 125.8565 umol/L; Total Hemoglobin (HGBA1C) 3008.7577 umol/L
[2025-01-22 11:37] LABS: Alanine Aminotransferase 20 U/L (0-31); Albumin Level 4.0 g/dL (3.5-5.0); Alkaline Phosphatase 94 U/L (39-117); Anion Gap 14 (12-20); Aspartate Amino Transferase 29 U/L (5-31); Blood Urea Nitrogen 15 mg/dL (9-16); Calcium 8.6 mg/dL (8.4-10.2); Carbon Dioxide 25 mmol/L (22-29); Chloride 106 mmol/L (96-108); Cholesterol 158 mg/dL (<200); Estimated Glomerular Filt Rate > 60; HDL Cholesterol 40 mg/dL (>40); Potassium 3.8 mmol/L (3.3-5.1); Sodium 141 mmol/L (135-145); Total Protein 6.4 g/dL (6.5-8.0); Triglycerides 121 mg/dL (<150)
[2025-01-22 11:54] LABS: Vitamin B12 267 pg/mL (200-900)
[2025-01-28 12:03] LABS: Vitamin D 25-OH, D2 <4 ng/mL; Vitamin D 25-OH, D3 29 ng/mL; Vitamin D 25-OH, Total 29 ng/mL (30-100)
== END 2025-01-22 07:00 | disposition home or self-care (01) ==
LOC: HO.HMGCLDS 06:59
PROVIDERS: PCP Physician Assistant Medical; Visit Provider Physician Assistant Medical
DX: Z00.00 Encounter for general adult medical examination without abnormal findings (principal); M85.80 Other specified disorders of bone density and structure, unspecified site; E78.5 Hyperlipidemia, unspecified; G57.93 Unspecified mononeuropathy of bilateral lower limbs; I10 Essential (primary) hypertension; R73.9 Hyperglycemia, unspecified; Z91.89 Other specified personal risk factors, not elsewhere classified
CPT/HCPCS: 36415; 80053; 80061; 82306; 82607; 83036; 84443

== ENCOUNTER 2025-03-27 14:03 | Outpatient (REF) | payer OTHER, SELFPAY ==
--- NOTE | ~2025-03-27 | MM_ITS ---
EXAMINATION: MM SCREENING DIGITAL BREAST TOMOSYNTHESIS, BILATERAL CLINICAL INFORMATION: Screening. Asymptomatic. COMPARISON: Mammography: No prior imaging available for comparison at this time. TECHNIQUE: Digital breast mammography with tomosynthesis is performed in both the craniocaudal and mediolateral oblique views along with computer-aided detection (CAD). FINDINGS: There are scattered areas of fibroglandular density. There are no significant masses, abnormal calcifications, or other abnormalities. MM/MM tomosynthesis screening BI IMPRESSION: No mammographic evidence of malignancy. ASSESSMENT: BI-RADS Category 1: Negative RECOMMENDATION: Routine annual mammography screening. 1 year F/U This examination should not preclude the clinical evaluation of a suspicious palpable abnormality. This patient's information was entered into a reminder system with a target due date for their next mammogram. Electronically signed by: Josephine Castro DO 03/31/2025 06:29 PM FLAQUITA
--- NOTE | ~2025-03-27 | MM_ITS ---
EXAMINATION: DUAL X-RAY ABSORPTIOMETRY (DXA) FOR BONE MINERAL DENSITY. CLINICAL INDICATION: Asymptomatic menopausal state. TECHNIQUE: An axial (e.g., hips, spine) and/or appendicular (e.g., radius) exam was performed, as appropriate, using [employer] densitometer. Images are obtained for bone mineral density measurement and are not obtained for diagnostic purposes. [id number] COMPARISON: None. FINDINGS: Scan quality: Good. LUMBAR SPINE (L1-L4): BMD (in g/cm*2): 1.185. T-score: 0.0. Z-score: 0.3. LEFT FEMORAL NECK: BMD (in g/cm*2): 0.763. T-score: - -2.0. Z-score: 0.7. LEFT TOTAL HIP: BMD (in g/cm*2): 0.838. T-score: -1.0. Z-score: 0.0. FRAX 10-YEAR PROBABILITY OF FRACTURE: 10-year fracture risk is performed using the [employer] FRAX calculator based on patient-reported risk factors. Major osteoporotic fracture: 11%%. Hip fracture: 0.8%%. MM/XR DEXA axial skeleton IMPRESSION: Normal based on BMD. World Health Organization criteria for BMD impression classify patients as: - Normal (T-score at or above -1.0). - Osteopenia (T-score between -1.0 and -2.5). - Osteoporosis (T-score at or below -2.5). Per the Bone Health and Osteoporosis Foundation the FRAX tool is most useful in patients with low femoral neck bone mineral density (osteopenia). FRAX is calculated per request. RECOMMENDATIONS: 1. All patients should optimize their calcium and vitamin D intake. 2. Consider FDA-approved medical therapies in postmenopausal women and men aged 50 years and older, based on the following: - A hip or vertebral (clinical or morphometric) fracture. - T-score less than or equal to -2.5 at the femoral neck or spine after appropriate evaluation to exclude secondary causes. - Low bone density (T-score between -1.0 and -2.5 at the femoral neck or spine) and a 10-year probability of a hip fracture greater than or equal to 3% or a 10-year probability of a major osteoporosis-related fracture greater than or equal to 20% based on FRAX calculation. - Clinician judgment and/or patient preferences may indicate treatment for people with 10-year fracture probabilities above or below these levels. - Further guidance on treatment can be found at the National Osteoporosis Foundation's website bonesource.org. 3. Patients with diagnosis of osteoporosis or at high risk for fracture should have regular bone mineral density tests. For patients eligible for Medicare, routine testing is allowed once every 2 years. The testing frequency can be increased to one year for patients who have rapidly progressing disease, those who are receiving or discontinuing medical therapy to restore bone mass or have additional risk factors. Electronically signed by: Real Hirsch MD 03/27/2025 03:28 PM FLA[facility]ITA ESPINOZA
--- OUTSIDE RECORDS SUMMARY | 2025-03-27 20:56 | XMS_ITS | Clinical Summary ---
Author Organization [facility] Address [address] [place] [address] Care Team Providers Care Daily Sales Audit Clerk Name Role Phone Leonora Vo Primary Care Provider [phone] Surgical History Surgery Date Site/Laterality Comments OTHER SURGICAL HISTORY PROCEDURE: HISTORY OTHER; COMMENT: rt breast bx 1999 MULTIPLE TOOTH EXTRACTIONS PROCEDURE: HISTORICAL DENTAL EXTRACTION Medical History Medical History Date Comments CML (chronic myelocytic leuk emia) ([facility] V24, [facility] V28) 07/01/2010 DX:CML (chronic myelocytic leukemia) ([facility]) Iron deficiency anemia, unspecified 07/01/2010 [...] age to complete this topic Care Teams Daily Sales Audit Clerk Relationship Specialty Start Date End Date Leonora Vo PA [address] [place] [address] PCP - General 10/09/23
== END 2025-03-27 14:04 | disposition home or self-care (01) ==
LOC: HO.MAMMO 14:03
PROVIDERS: PCP Physician Assistant Medical; Visit Provider Physician Assistant Medical
DX: Z12.31 Encounter for screening mammogram for malignant neoplasm of breast (principal); Z78.0 Asymptomatic menopausal state
CPT/HCPCS: 77063; 77067; 77080

== ENCOUNTER → 2025-03-27 14:30 | Outpatient (BNV) | payer OTHER, SELFPAY | PROVIDERS: PCP Physician Assistant Medical; Visit Provider Radiology Diagnostic Radiology | DX: E28.39 Other primary ovarian failure (principal) | CPT/HCPCS: 77080 ==